=== PATIENT | male | born 1990 | race Caucasian/White ===

== ENCOUNTER 2021-04-07 01:33 | Emergency (ER) | payer OTHER ==
[~2021-04-07 01:33] MED LIST: ZOFRAN ODT 4 MG4 MG SL; ZOFRAN4 MG PO
[2021-04-07 02:19] LABS: HEMOGLOBIN 16.1 gm/dl (14.0-17.5); RED BLOOD COUNT 5.08 M/UL (4.20-5.50); WHITE BLOOD COUNT 11.2 K/UL (4.5-11.0)
[2021-04-07 02:46] LABS: BUN/CREATININE RATIO 12 (0-10)
== END 2021-04-07 04:30 | disposition home or self-care (01) ==
LOC: ER1 01:33
PROVIDERS: Family Medicine
DX: H93.13 Tinnitus, bilateral (principal); K21.9 Gastro-esophageal reflux disease without esophagitis; I10 Essential (primary) hypertension; Z90.49 Acquired absence of other specified parts of digestive tract
CPT/HCPCS: 70450; 71045; 80053; 82550; 82553; 83874; 84484; 85025; 93005; 99285

== ENCOUNTER 2021-10-25 15:21 | Emergency (ER) | payer OTHER ==
[2021-10-25] MEDS ORDERED: AFRIN15 M1 (16:43)
== END 2021-10-25 17:06 | disposition home or self-care (01) ==
LOC: ER1 15:21
DX: R04.0 Epistaxis (principal); I10 Essential (primary) hypertension; F17.220 Nicotine dependence, chewing tobacco, uncomplicated; Z90.89 Acquired absence of other organs; Z79.899 Other long term (current) drug therapy
CPT/HCPCS: 99283